=== PATIENT | female | born 1990 | race Caucasian/White ===

== ENCOUNTER 2017-05-06 01:35 | Inpatient (IN) ==
--- OUTSIDE RECORDS SUMMARY | 2017-05-06 02:00 | External Medical Summary | Continuity of Care Document ---
:1990 Author Organization [facility] Address [address] [place], [place] [id number] Phone Care Team Providers Name Role Phone Shayan Haynes MD Unavailable Unavailable Allergies, Adverse Reactions, Alerts Substance Reaction Severity Status No Known Drug Allergies Unknown Active Medications Medication Instructions Dosage Effective Dates Status Comments (start - stop) Augmentin 875 take 1 tablet by Not Available - Active mg-125 mg tablet oral route every 12 hours 28 mg take 1 tablet by Not Available - Active iron-800 mcg oral route every tablet day Problems Condition Effective Dates (start - stop) Clinical Status Supervision of other high risk - pregnancies, third trimester Diseases of the circ sys comp - , third trimester 34 weeks gestation of - state, incidental Supervision of other high risk - pregnancies, first trimester Encntr screen for infections w sexl - mode of transmiss Encounter for screening for oth - infec/parastc diseases Encounter for screening of - mother 10 weeks gestation of - Supervision of other high risk - pregnancies, first trimester Diseases of the circ sys comp - , second trimester 13 weeks gestation of - Supervision of other high risk - pregnancies, second trimester 18 weeks gestation of - Supervision of other high risk - pregnancies, second trimester 20 weeks gestation of - Supervision of other high risk - pregnancies, second trimester 16 weeks gestation of - Supervision of other high risk - pregnancies, second trimester 25 weeks gestation of - Supervision of other high risk - pregnancies, third trimester 35 weeks gestation of - Supervision of other high risk - pregnancies, third trimester Encounter for screening of - mother 36 weeks gestation of - Supervision of other high risk - pregnancies, third trimester 32 weeks gestation of - Supervision of other high risk - pregnancies, third trimester 29 weeks gestation of - Supervision of other high risk - pregnancies, third trimester 31 weeks gestation of - Diseases of the circ sys comp - , third trimester 34 weeks gestation of - Congestive Heart Failure Active Procedures Procedure Date OB Visit 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 700 Provider: Health PA, pregnancies, 7 Medical Cirilo [address] third Center Shai R, 1522, trimesterEncounte Anjel Nath r for 120, [facility], screening of [address] [id number], [id number] weeks [place], [facility] 120, [place] gestation of [id number] Jace, tel: , [place]. [place], tel: [phone]. [id number] tel:[phone] Lexus Mccormick Sep-2 Shai In Womens 7-201 Cirilo. 700 Health PA, 7 Medical PO Box Center 1522, Anjel Nath, 120, [place], Jace, [id number], [place], [place] [id number] tel: , [place]. tel: [phone] Lexus Mccormick Supervision of Sep-2 Shai Referring In Womens other high risk 2-201 Cirilo. 700 Provider: Health PA, pregnancies, 7 Medical Cirilo PO Box third [email or web address] Center Shai R, 1522, weeks gestation Anjel Nath, of 120, Medical [facility] [id number], [place], [place]jel 120, [place] [id number] Jace, tel: , [place], tel: [phone]. [phone] tel:[phone] Lexus Mccormick Supervision of Sep-1 Shai Referring In Womens other high risk 1-201 Cirilo. 700 Provider: Health PA, pregnancies, 7 Medical Cirilo PO Box third Center Shai R, 1522, trimesterDiseases Anjel Nath, of the circ sys 120, Medical [place], comp [facility], [place], [place] [id number], third [email or web address] ALLYSSA, [facility] 120, [place] weeks gestation [id number] Jace, tel: of , [place]. [place], tel: [phone]. [phone] tel:[phone] Lexus Mccormick Diseases of the Sep-1 Shai Referring In Womens Ultrasound circ sys comp 1-201 Cirilo. 700 Provider: Health PA, , third 7 Medical Cirilo PO Box [email or web address] weeks Center Shai R, 1522, gestation of Anjel Nath, 120, Medical [facility] [id number], [place], [place]jel 120, [place] [id number] Jace, tel: , [place], tel: [phone]. [id number] tel:[phone] Lexus Mccormick Supervision of Sep-0 Shai Referring In Womens other high risk 1-201 Cirilo. 700 Provider: Health PA, pregnancies, 7 Medical Cirilo PO Box third [email or web address] Center Shai R, 1522, weeks gestation Anjel Nath, of 120, Medical [facility] [id number], [place], [place]jel 120, [place] [id number] Jace, tel: , [place]. [place] tel: [phone]. [phone] tel:[phone] Lexus Mccormick Supervision of Aug-2 Shai Referring In Womens other high risk 4-201 Cirilo. 700 Provider: Health PA, pregnancies, 7 Medical Cirilo PO Box third Center Shai R, 1522, weeks gestation Anjel Nath, of 120, Medical [facility] [id number], [place], Anjel 120, [place] [id number] Jace, tel: , [place]. [place], tel: [phone]. [phone] tel:[phone] Lexus Mccormick Supervision of Feb- Shai Referring In Womens other high risk 0-201 Cirilo. 700 Provider: Health PA, pregnancies, 7 Medical Cirilo PO Box third [email or web address] Center Shai R, 1522, weeks gestation Anjel Nath, of 120, Medical [place], [facility] [id number], [place], Anjel 120, [place] [id number] Jace, tel: , [place], tel: [phone]. [phone] tel:[phone] Lexus Mccormick Supervision of Jan-1 Shai Referring In Womens other high risk 3-201 Cirilo. 700 Provider: Health PA, pregnancies, 7 Medical Cirilo PO Box second Center Shai R, 1522, [email or web address] weeks Anjel Nath, gestation of 120, Medical [place], [facility] [id number], [place], Anjel 120, [place] [id number] Jace, tel: , [place], tel: [phone]. [phone] tel:[phone] Lexus Mccormick Supervision of Antione-0 Shai Referring In Womens other high risk 8-201 Cirilo. 700 Provider: Health PA, pregnancies, 7 Medical Cirilo PO Box second Center Shai R, 1522, [email or web address] weeks Anjel Nath, gestation of 120, Medical [place], Jace, [place] [id number], [place], Anjel 120, [place] [id number] Jace, tel: , [place]. [place], tel: [phone]. [phone] tel:[phone] Lexus Mccormick Supervision of May-2 Shai Referring In Womens other high risk 6-201 Cirilo. 700 Provider: Health PA, pregnancies, 7 Medical Cirilo PO Box second Center Shai R, 1522, [id number] weeks Anjel Nath, gestation of 120, Medical [place], [facility] [id number], [place], Anjel 120, [place] [id number] Jace, tel: , [place]. [place], tel:[phone]. [phone] tel:[phone] Lexus Mccormick Supervision of November- Shai Referring In Womens other high risk 0-201 Cirilo. 700 Provider: Health PA, pregnancies, 7 [facility] second Center Shai R, 1522, [email or web address] weeks , [facility] Fabiana Leavitt, gestation of 120, Medical [place], [facility] [id number], [place], Anjel 120, [place] [id number] Jace, tel: , [place]. [place], tel:[phone]. [phone] tel:[phone] Lexus Mccormick Supervision of Oct-2 Shai Referring In Womens other high risk 0-201 Cirilo. 700 Provider: Health [place], pregnancies, 7 Medical [facility] first [place] Shai R, 1522, trimesterDiseases , [place] [address] Dag[place], of [facility] sys 120, Medical [place], comp , [facility] [id number], second [place], Anjel 120, [place] weeks [id number] Jace, tel: gestation of , [place]. [place] tel: [phone]. [phone] tel:[phone] Lexus Mccormick Supervision of Sep-3 Shai Referring In Womens other high risk 0-201 Cirilo. 700 Provider: Health PA, pregnancies, 7 Medical [facility] first Walker Shai R, 1522, trimesterEncntr , [place] [address] Dagmar, screen for 120, Medical [place], infections w sexl [facility] [id number], mode of [place], Anjel 120, [place] transmissEncounte [id number] Jace, tel: r for screening , [place]. [place], for oth tel:[phone]. infec/parastc [id number] tel: diseasesEncounter [phone] for screening of [id number] weeks gestation of Lexus Mccormick state, Mar- Martinez In Womens incidental 6-201 Geetha. Health PA, 7 700 [place] [id number] Dr [place], [place]jel [place], 120, [id number], [place], [place], tel:[phone] 872130 , [place]. tel: [phone] Family History Family Member Diagnosis Age At Onset Immunizations Vaccine Date Status Comments Tdap completed Source: New Immunization Record Payers Payer name Insurance type Covered libertarian ID Authorization(s) [facility] [id number] [facility] [id number] Social History Type Description Quantity Date Captured Alcohol Use Details No Caffeine Use Details Unknown Tobacco Use Status Unknown Smoking Status Never smoker Vital Signs Date / Height Weight BMI Pulse Blood Temperature Respiratory Body Head BMI Time: Rate Pressure Rate Surface Circumference percentile Area 158.20 26.3 126/83 2017 lbs 2 mm[Hg] 9:49 kg/m AM eter (2) 7 9:43 kg/m AM eter (2) Chief Complaint And Reason For Visit Unknown Chief Complaint And Reason For Visit Reason For Referral Reason For Referral Unknown Plan Of Care Date Type Action Status Goal Lifestyle education regarding completed diet Appointment Tamela Aparicio BOOKED Future Order: Radiology Order Ultrasound OB Follow-up ([id number]) Ordered Date Type Problem Goal Intervention Status Start Date Unknown. History Of Present Illness Encounter Date Complaint History Of Present Illness This patient has no known history of present illness Functional Status Encounter Date Functional Assessment Cognitive Assessment Unknown Medications Administered Medication Instructions Dosage Effective Dates (start - stop) Status Comments Drug Treatment Unknown Instructions Date Instruction Additional Information exercise indications for ultrasound influenza vaccine environmental / work hazards HIV and other routine tests risk factors identified by history anticipated course of care nutrition and weight gain counseling, special diet toxoplasmosis precautions (cats / raw meat) sexual activity travel use of any medications (including supplements, vitamins, herbs, OTC drugs) domestic violence seat belt use childbirth classes / hospital facilities hospital registration genetic testing new ob handbook Giving encouragement to exercise Related to Body mass index less than 20 Lifestyle education regarding diet Related to Body mass index less than 20
--- OUTSIDE RECORDS SUMMARY | 2017-05-06 02:00 | External Medical Summary | Referral Summary ---
:1990 [facility] Address [address] [place] [address] [place]SS[place] [address] Care Team Providers Name Role Phone Shayan Haynes Primary Care Physician Encounter [facility] [id number] Date(s): 09/19/16 - 09/19/16 [facility] [place] [address]- [place] Discharge Diagnosis: Amenorrhea, secondary Discharge Disposition: 01-Home or Self Care Attending Physician: Ofelia Swift APRN Admitting Physician: Ofelia Swift APRN Vital Signs Most recent to oldest [Reference Range]: 1 Temperature Tympanic [36.6-38.1 degC] 36.8 degC (09/19/16 2:16 PM) Peripheral Pulse Rate [60-100 bpm] 72 bpm (09/19/16 2:16 PM) Blood Pressure [90-140/60-90 mmHg] 127/54 mmHg (09/19/16 2:16 PM) Problem List No data available for this section Allergies, Adverse Reactions, Alerts No Known Medication Allergies Medications Aspirin Low Dose 81 mg oral delayed release tablet tabs, Oral, Daily, 0 Refill(s) Start Date: 05/05/14 Status: Orderedcitalopram 10 mg oral tablet 10 mg 1 tabs, Oral, Daily, # 30 tabs, 0 Refill(s) Start Date: 04/03/15 Status: OrderedOcella 3 mg-0.03 mg oral tablet See Instructions, 1 tabs Oral Daily, # 84 tabs, 3 Refill(s), eRx: [facility], 1 tabs Oral Daily Start Date: 04/24/15 Status: OrderedPrenatal Multivitamins Oral, Daily, 0 Refill(s) Start Date: 04/03/15 Status: Ordered Results Chemistry Most recent to oldest [Reference Range]: 1 Beta hCG Ql Positive *ABN* (09/19/16 2:49 PM) Immunizations Given and Recorded Vaccine Date Status Refusal Reason influenza virus vaccine, live 06/17/13 Given Procedures Procedure Date Related Diagnosis Body Site Collection of venous blood by venipuncture 09/19/16 Social History Social History Type Response Smoking Status Never smoker Assessment and Plan Extracted from: Title: Office Visit Note Author: Ofelia Swift APRN Date: 09/19/16 Assessment/Plan Amenorrhea, secondary Will obtainserum qualitative hCGand report findings. Patient has prescription for vitamins. If test is positive will obtain sonogram in 10-14 days. Because o f hercardiac situation (pulmonary valve replacement)will need referral to high risk OBand referral will be made to Dr. Negin Monique. Ordered: Office Visit Level 3 Est 58888 Addendum by Americo Keenan DO on September 19, 2016 19:58:12 SYSTEMS INTEGRATION ANALYST I reviewed this chart, the patient's medical history, and the Resident's/INSURANCE INSTRUCTOR 's/PA/RN's/PharmD's documented findings, and concur with the assessment and plan as above.
--- OUTSIDE RECORDS SUMMARY | 2017-05-06 02:00 | External Medical Summary | Continuity of Care Document ---
:1990 Author Organization [facility] Address [address] [place], [place] [address] Phone Care Team Providers Name Role Phone Shayan Haynes MD Unavailable Unavailable Allergies, Adverse Reactions, Alerts Substance Reaction Severity Status No Known Drug Allergies Unknown Active Medications Medication Instructions Dosage Effective Dates Status Comments (start - stop) 28 mg take 1 tablet by Not Available - Active iron-800 mcg oral route every tablet day Problems Condition Effective Dates (start - stop) Clinical Status Supervision of other high risk - pregnancies, second trimester 25 weeks gestation of - state, incidental Supervision [...] second trimester 16 weeks gestation of - Congestive Heart Failure Active Procedures Procedure Date OB Visit No Charge Results Test Name Date and Time Measure Units Reference Range Abnormal Flag Comments Unknown Advance Directives Directive Yes / No Effective Date File Name Unknown Encounters Encounter Practice Location Reason(s) Diagnoses Date Provider Care Team Description For Visit Members Lexus Mccormick Supervision of Irwin-1 Shai Referring In Womens other high risk 3-201 Cirilo. 700 Provider: Health PA, pregnancies, second 7 Medical Cirilo [address] [email or web address] weeks Center Shai R, 1522, gestation of Anjel Nath, 120, Medical [facility] [id number], [place], [place] 120, [place] [id number] Jace, tel:+ , [place], tel: [phone]. [phone] tel:[phone] Lexus Mccormick Supervision of Antione-0 Shai Referring In Womens other high risk 8-201 Cirilo. 700 Provider: Health PA, pregnancies, second 7 Medical Cirilo PO Box [email or web address] weeks Center Shai R, 1522, gestation of Anjel Nath, 120, Medical [facility] [id number], [place], [place] 120, [place] [id number] Jace, tel: , [place]. [place], tel: [phone]. [phone] tel:[phone] Lexus Mccormick Supervision of November-2 Shai Referring In Womens other high risk 6-201 Cirilo. 700 Provider: Health PA, pregnancies, second 7 Medical Cirilo PO Box [email or web address] weeks Center Shai Srivastava, 1522, gestation of Anjel Nath, 120, Medical [facility]ace [facility] [id number], [place], [place]jel 120, [place] [id number] Jace, tel: , [place], tel: [phone]. [id number] tel:[phone] Lexus Mccormick Supervision of November-1 Shai Referring In Womens other high risk 0-201 Cirilo. 700 Provider: Health PA, pregnancies, second 7 Medical Cirilo PO Box [email or web address] weeks Center Shai R, 1522, gestation of Anjel Nath, 120, Medical [facility] [id number], [place], Anjel 120, [place] [id number] Jace, tel: , . [place] tel: [phone]. [phone] tel:[phone] Lexus Mccormick Supervision of Apr-2 Shai Referring In Womens other high risk 0-201 [place]. 700 Provider: Health PA, pregnancies, first 7 Medical [place] PO Box trimesterDiseases Center Shai R, 1522, of the [facility] sys Anjel Nath 700 [place], comp , 120, Medical [place], second [email or web address] [facility] [id number], weeks gestation of [place], Anjel 120, [place] [id number] Mccormick, tel:+ , [place]. [place], tel:[phone]. [phone] tel:[phone] Associates Jace Supervision of Sep-3 Shai Referring In Womens other high risk 0-201 Cirilo. 700 Provider: Health PA, pregnancies, first 7 Medical [facility] Box trimesterEncntr [place] Shai Srivastava, 152, screen for Dr Anjel 700 Dag[place], infections w sexl 120, Medical [place], mode of Jace [place] [id number], transmissEncounter [place], [facility] 120, [place] for screening for [id number] Mccormick, tel: ot infec/parastc , [place]. [place], [facility] tel:[phone]. for [phone] tel: screening of [id number] seuced29 weeks gestation of Associates Jace state, Sep- Martinez In Womens incidental 6-201 Geetha. Health PA, 7 700 PO Box [facility] 15[address], Center Dr Dagmar, Anjel [place], 120, , [place], [place], tel:[phone] , . tel: [phone] Family History Family Member Diagnosis Age At Onset Immunizations Vaccine Date Status Comments Unknown Payers Payer name Insurance type Covered libertarian ID Authorization(s) [facility] [id number] Social History Type Description Quantity Date Captured Alcohol Use Details No Caffeine Use Details Unknown Tobacco Use Status Unknown Smoking Status Never smoker Vital Signs Date / Height Weight BMI Pulse Blood Temperature Respiratory Body Head BMI Time: Rate Pressure Rate Surface Circumference percentile Area 146.10 24.3 / lbs 1 mm[Hg] 8:42 kg/m AM eter (2) Chief Complaint And Reason For Visit Unknown Chief Complaint And Reason For Visit Reason For Referral Reason For Referral Unknown Plan Of Care Date Type Action Status Goal Lifestyle education regarding diet completed Appointment Tamela Aparicio BOOKED Date Type Problem Goal Intervention Status Start [...]
--- OUTSIDE RECORDS SUMMARY | 2017-05-06 02:00 | External Medical Summary | Referral Summary ---
:1990 Author Organization [facility] Address [address] [place] [address] [place]SS[place] De La Rosa [address] Care Team Providers Name Role Phone Shayan Haynes Primary Care Physician Encounter [facility] Date(s): 05/01/15 - 05/01/15 [facility] [address] [place] [address] [place] [address]- Discharge Diagnosis: Axillary lump Discharge Disposition: 01-Home or Self Care Attending Physician: Andrea Hussein MD Admitting Physician: Andrea Hussein MD Referring Physician: Ofelia Swift APRN Vital Signs Most recent to oldest [Reference Range]: 1 Temperature Tympanic [36.6-38.1 degC] 36.9 degC (05/01/15 9:05 AM) Blood Pressure [90-140/60-90 mmHg] 108/62 mmHg (05/01/15 9:05 AM) Problem List No data available for this [...] Daily, # 84 tabs, 3 Refill(s), eRx: [facility], 1 tabs Oral Daily Start Date: 04/24/15 Status: OrderedPrenatal Multivitamins Oral, Daily, 0 Refill(s) Start Date: 04/03/15 Status: Ordered Results No data available for this section Immunizations Vaccine Date Refusal Reason influenza virus vaccine, live 06/17/13 Procedures No data available for this section Social History Social History Type Response Smoking Status Never smoker Assessment and Plan Extracted from: Title: Office Visit Note Author: Andrea Hussein MD Date: 05/01/15 Assessment/Plan 1.Axillary lump Ordered: Office Visit Level 4 New [id number] Plan: Ongoing Clinical Observation/Follow-Up. No Need for Surgical Intervention/Biopsy at This Time. I did review the patient's chartincluding office note performed by PCPs telesales professional fromApril 03, 2015. Reviewedultrasound of left breast from April 23, 2015 that did not reveal any s onographic evidence for malignancy. Patient also had underwent adiagnostic mammogramof her left breastthat was also found to be within normal limits with no mass or calcification noted. I inf ormed the patient and her mother whom accompanied her todaythat I felt that her radiographic findings were concordant with her physical findings. I.e. there were both benign in natureand Itheref israel did not feel that there was any need forsurgicalintervention/biopsy at this time. I recommended that she continue to do monthly self breast examinations and to monitor this slight area of firm nessnoted within the upper outer quadrant of her left breast. If she began to notice any changes she should return to the office for further evaluation at that time.
--- OUTSIDE RECORDS SUMMARY | 2017-05-06 02:00 | External Medical Summary | Continuity of Care Document ---
:1990 Author Organization [facility] Address [address] [place], [place] [id number] Phone Care Team Providers Name Role Phone [...] third trimester 29 weeks gestation of - state, incidental Supervision [...] third trimester 31 weeks gestation of - Congestive Heart Failure Active Procedures Procedure Date OB Visit No Charge Hemoglobin count, colorimetric Hematocrit blood count Glucose test Venpnctr fngr/heel/ear stick routne Results Test Name Date and Time Measure Units Reference Range Abnormal Flag Comments Panel Description: Glucose [Mass/volume] in Serum or Plasma --1 hour post 50 g glucose PO GLUCOSE, GESTATIONAL 80 mg/dL <140 N Test performed at [facility] SCREEN (50G)-140 10:16:00 DIAGNOSTICS [id number] [place] [address]Ihomxenc: ROGELIO LEO DO,MPH Panel Description: HEMOGLOBIN + HEMATOCRIT HEMOGLOBIN 10:16:00 12.6 g/dL 11.7-15.5 N HEMATOCRIT 10:16:00 36.5 % 35.0-45.0 N Test performed at [facility] [id number] [place] [address]Flqaxsiw: ROGELIO LEO DO,MPH Advance Directives Directive Yes / No Effective Date File Name Unknown Encounters Encounter Practice Location Reason(s) Diagnoses Date Provider Care Team Description For Visit Members Lexus Mccormick Supervision of Shai Referring In Womens other high risk 4-201 [place]. 700 Provider: Health NELLY, pregnancies, third 7 Medical [facility] Box [email or web address] weeks [place] Shai Srivastava, 1522, gestation of [place]jel Nath, 120, Medical [facility] [id number], [place], [facility] 120, [place] [id number] Jace, tel: , [facility], tel: [phone]. [id number] tel:[phone] Lexus Mccormick Supervision of Shai Referring In Womens other high risk 0-201 [place]. 700 Provider: Eleanor VILLEGAS, pregnancies, third 7 Medical [facility] Box [id number] weeks [place] Shai Srivastava, 1522, gestation of [place]jel Nathta, 120, Medical [facility] [id number], [place], [place] 120, [place] [id number] Jace, tel: , [facility] tel:[phone]. [id number] tel:[phone] Lexus Mccormick Supervision of Irwin-1 Shai Referring In Womens other high risk 3-201 Cir[place]. 700 Provider: Health PA, pregnancies, second 7 Medical Cirilo PO Box [email or web address] weeks Center Shai R, 1522, gestation of [place] Nath, 120, Medical [facility] [id number], [place], [place] 120, [place] [id number] Jace, tel: , [place]. [place] tel: [phone]. [id number] tel:[phone] Lexus Mccormick Supervision of Antione-0 Shai Referring In Womens other high risk 8-201 Cir[place]. 700 Provider: Health PA, pregnancies, second 7 Medical Cir[place] PO Box [email or web address] weeks Center Shai R, 1522, gestation of [place] Nath, 120, Medical [facility] [id number], [place], [place] 120, [place] [id number] Jace, tel: , [place]. [place] tel: [phone]. [id number] tel:[phone] Lexus Mccormick Supervision of May-2 Shai Referring In Womens other high risk 6-201 Cir[place]. 700 Provider: Health PA, pregnancies, second 7 Medical Cirilo [address] Box [email or web address] weeks Center Shai R, 1522, gestation of [place] Nath, 120, Medical [facility] [id number], [place], [place] 120, [place] [id number] Jace, tel: , [place]. [place] tel: [phone]. [id number] tel:[phone] Lexus Mccormick Supervision of May-1 Shai Referring In Womens other high risk 0-201 Cir[place]. 700 Provider: Health PA, pregnancies, second 7 Medical Cir[place] PO Box [email or web address] weeks Center Shai R, 1522, gestation of [place] Nath, 120, Medical [facility] [id number], [place], [place] 120, [place] [id number] Jace, tel: , . [place] tel: [phone]. [id number] tel:[phone] Lexus Mccormick Supervision of Apr-2 Shai Referring In Womens other high risk 0-201 [place]. 700 Provider: Health PA, pregnancies, first 7 Medical [facility] Box trimesterDiseases Center Shai R, 1522, of the [facility] sys [place] Nath 700 [place], comp , 120, Medical [place], second [facility] [id number], weeks gestation of [place], [facility] 120, [place] [id number] [place], tel: , [place]. [place], tel: [phone]. [id number] tel:[phone] Lexus Mccormick Supervision of Sep-3 Shai Referring In Womens other high risk 0-201 Cirilo. 700 Provider: Health PA, pregnancies, first 7 Medical [facility] Box trimesterEncntr [place] Shai R, 1522, screen for [place] Nathchita, infections w sexl 120, Medical [place], mode of [facility] [id number], transmissEncounter [place], [facility] 120, [place] for screening for [id number] M[place], tel: [facility] infec/parastc , [place]. [place], diseasesEncounter tel: [phone]. for [id number] tel: screening of [id number] ogavso43 weeks gestation of Associates Jace state, Sep- Martinez In Womens incidental 6-201 Geetha. Health PA, 7 700 PO Box [facility] [address], [place] [address] Dagmar [place], 120, [id number], [place], tel: [phone] , [place]. tel: [phone] Family History Family Member Diagnosis Age At Onset Immunizations Vaccine Date Status Comments Unknown Payers Payer name Insurance type Covered libertarian ID Authorization(s) [facility] ALLYSSA TIJERINA [id number] Social History Type Description Quantity Date Captured Alcohol Use Details No Caffeine Use Details Unknown Tobacco Use Status Unknown Smoking Status Never smoker Vital Signs Date / Height Weight BMI Pulse Blood Temperature Respiratory Body Head BMI Time: Rate Pressure Rate Surface Circumference percentile Area 152.80 25.4 132/76 -2017 lbs 2 mm[Hg] 9:27 kg/m AM eter (2) Chief Complaint And Reason For Visit Unknown Chief Complaint And Reason For Visit Reason For Referral Reason For Referral Unknown Plan Of Care Date Type Action Status Goal Lifestyle education regarding diet completed Appointment Tamela Aparicio BOOKED Appointment Tamela Aparicio BOOKED Date Type Problem [...]
--- OUTSIDE RECORDS SUMMARY | 2017-05-06 02:00 | External Medical Summary ---
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 Problem PFO (patent foramen ovale) Q21.1 Active Problem Syncope R55 Active Problem Congenital heart disease Q24.9 Active Problem PFO 745.5 Active Problem Congenital Heart Disease 746.9 Active Problem Pulmonary valve disorders I37.9 Active Problem Tricuspid valve disorders, I36.9 Active non-rheumatic Assessment Syncope R55 Active Assessment PFO (patent foramen ovale) Q21.1 Active Assessment Pulmonary valve disorders I37.9 Active Assessment Congenital heart disease Q24.9 Active Assessment Tricuspid valve disorders, I36.9 Active non-rheumatic Problem Syncope 780.2 Active Medications Medication Code System Code Instructions Start End Date Status Dosage Date Aspirin [facility] 58373-55 81 MG Orally 1 tablet 74-68 Once a day [facility] 37735-87 Orally qd 1 tab 06-10 Ocella [facility] 66072-33 3-0.03 MG Orally 1 tablet 31-67 Once a day Citalopram [facility] 25220-00 20 MG Orally 1 tablet Hydrobromide 41-01 Once a day Procedures Procedure Coding System Code Date Office Visit, Est Pt., Level 4 CPT-4 74970 Mar 04, 2016 ELECTROCARDIOGRAM, COMPLETE CPT-4 24774 Mar 04, 2016 Vital Signs Date/Time: Mar 04, 2016 BMI 21.11 Index Weight 123 lbs Height 64 in Cardiac Monitoring Heart Rate 62 /min Oximetry 99 % Blood Pressure Diastolic 80 mm Hg Blood Pressure Systolic 102 mm Hg Results No Known Results Summary Purpose [employer]Works Submission
--- OUTSIDE RECORDS SUMMARY | 2017-05-06 02:00 | External Medical Summary | Continuity of Care Document ---
:1989 Author Organization [facility] Address [address] [place], [place] [phone] Phone Care Team Providers Name Role Phone [...] Effective Dates (start - stop) Clinical Status state, incidental Supervision of other high risk [...] third trimester 34 weeks gestation of - Supervision of other [...] Congestive Heart Failure Active Procedures Procedure Date Unknown Results Test Name Date and Time Measure [...] 1522, trimesterEncounte [place] Nath r for 120, Medical [place], screening of [facility] [id number], [email or web address] weeks [place], [facility] 120, [place] gestation of [id number] Jace, tel: , [place]. [place], tel: [phone]. [id number] tel:[phone] Lexus Mccormick Sep-2 Shai In Womens 7-201 Cirilo. 700 Health PA, 7 Medical [address] Center [address]22, [place] Nath, 120, [place], Jace, [id number], [place], [place] [id number] tel: , [place]. tel: [phone] Lexus Mccormick Supervision of Sep-2 Shai Referring In Womens other high risk 2-201 Cirilo. 700 Provider: Health PA, pregnancies, 7 Medical Cir[place] PO Box third [email or web address] Center Shai R, 1522, weeks gestation [place] Nath, of 120, Medical [facility] [id number], [place], [place] 120, [place] [id number] Jace, tel: , [place]. [place], tel: [phone]. [id number] tel:[phone] Lexus Mccormick Sep-1 Shai In Womens 3-201 Cirilo. 700 Health PA, 7 Medical PO Box Center 1522, [place] Nath, 120, [place], [place], [id number], [place], [place] [id number] tel:+ , [place]. tel: [phone] Lexus Mccormick Supervision of Sep-1 Shai Referring In Womens other high risk 1-201 [place]. 700 Provider: Health PA, pregnancies, 7 Medical [facility] Box third Center Shai R, 1522, trimesterDiseases [place] Nath, of the circ sys 120, Medical [place], comp [facility] [id number], third [email or web address] [place], [place] 120, [place] weeks gestation [id number] Jace, tel: of , [place]. [place] tel: [phone]. [phone] tel:[phone] Lexus Mccormick Diseases of the Sep-1 Shai Referring In Womens Ultrasound circ sys comp 1-201 [place]. 700 Provider: Health PA, , third 7 Medical [facility] Box [email or web address] weeks Center Shai R, 1522, gestation of [place] Nath, 120, Medical [facility] , [place], [place] 120, [place] [id number] Jace, tel: , [place]. [place], tel: [phone]. [id number] tel:[phone] Lexus Mccormick Supervision of Sep-0 Shai Referring In Womens other high risk 1-201 [place]. 700 Provider: Health PA, pregnancies, 7 Medical Cir[place] PO Box third [email or web address] Center Shai R, 1522, weeks gestation [place] Nath, of 120, Medical [facility] [id number], [place], [place] 120, [place] [id number] Jace, tel: , [place] tel:[phone]. [id number] tel:[phone] Lexus Mccormick Supervision of Aug-2 Shai Referring In Womens other high risk 4-201 Cirilo. 700 Provider: Health PA, pregnancies, 7 Medical Cir[place] PO Box third [id number] Center Shai R, 1522, weeks gestation [place] Nath, of 120, Medical [facility]ace [facility] [id number], [place], [place] 120, [place] [id number] Jace, tel: , [place]. [place], tel: [phone]. [id number] tel:[phone] Lexus Mccormick Supervision of Aug-1 Shai Referring In Womens other high risk 0-201 Cirilo. 700 Provider: Health PA, pregnancies, 7 Medical Cir[place] PO Box third [email or web address] Center Shai R, 1522, weeks gestation [place] Nath, of 120, Medical [facility] [id number], [place], [place] 120, [place] [id number] Jace, tel: , [place]. [place], tel: [phone]. [id number] tel:[phone] Lexus Mccormick Supervision of Irwin-1 Shai Referring In Womens other high risk 3-201 Cirilo. 700 Provider: Health PA, pregnancies, 7 Medical Cir[place] PO Box second Center Shai R, 1522, [email or web address] weeks [place] Nath, gestation of 120, Medical [place], [facility] [id number], [place], [place] 120, [place] [id number] Jace, tel: , [place], tel: [phone]. [id number] tel:[phone] Lexus Mccormick Supervision of Antione-0 Shai Referring In Womens other high risk 8-201 Cirilo. 700 Provider: Health PA, pregnancies, 7 Medical Cirilo PO Box second Center Shai R, 1522, [id number] weeks [place] Nath, gestation of 120, Medical [place], [place], [place] [id number], [place], [place] 120, [place] [id number] Jace, tel: , [place]. [place] tel: [phone]. [id number] tel:[phone] Lexus Mccormick Supervision of November- Shai Referring In Womens other high risk 6-201 Cirilo. 700 Provider: Health PA, pregnancies, 7 Medical Cir[place] PO Box second Center Shai R, 1522, [email or web address] weeks [place] Nath, gestation of 120, Medical [place], [facility] [id number], [place], [place] 120, [place] [id number] Jace, tel: , [place]. [place] tel:[phone]. [id number] tel:[phone] Lexus Mccormick Supervision of Shai Referring In Womens other high risk 0-201 Cirilo. 700 Provider: Health PA, pregnancies, 7 Medical Cir[place] PO Box second Center Shai R, 1522, [email or web address] weeks [place] Nath, gestation of 120, Medical [place], [facility] [id number], [place], [place] 120, [place] [id number] Jace, tel: , [place] tel: [phone]. [id number] tel:[phone] Lexus Mccormick Supervision of Oct-2 Shai Referring In Womens other high risk 0-201 Cirilo. 700 Provider: Health PA, pregnancies, 7 Medical [place] PO Box first Center Shai R, 1522, trimesterDiseases [place] Nath, of the [facility] sys 120, Medical [place], comp , [place], [place] [id number], second [place], [place] 120, [place] [email or web address] weeks [id number] Jace, tel: gestation of , [place]. [place] tel: [phone]. [id number] tel:[phone] Lexus Mccormick Supervision of Sep-3 Shai Referring In Womens other high risk 0-201 Cirilo. 700 Provider: Health PA, pregnancies, 7 Medical [place] PO Box first Center Shai R, 1522, trimesterEncntr [place] Nath, screen for 120, Medical [place], infections [facility]l [facility] [id number], mode of [place], [place] 120, [place] transmissEncounte [id number] Jace, tel: r for screening , [place]. [place] for oth tel: [phone]. infec/parastc [id number] tel: diseasesEncounter [phone] for screening of [email or web address] weeks gestation of Associates Mccormick state, [place] In Womens incidental 6-201 Geetha. [facility], 7 700 PO [facility] [address], [address] [address] Dagmar, [place], 120, [id number], [place], [place], tel: [phone] , [place]. tel: [phone] Family History Family Member Diagnosis Age At Onset Immunizations Vaccine Date Status Comments Tdap completed Source: New Immunization Record Payers Payer name Insurance type Covered alliance party ID Authorization(s) [facility] [id number] [facility] [id number] Social History Type Description Quantity Date Captured Unknown Vital Signs Date / Height Weight BMI Pulse Blood Temperature Respiratory Body Head BMI Time: Rate Pressure Rate Surface Circumference percentile Area Unknown Chief Complaint And Reason For Visit Unknown Chief Complaint And Reason For Visit Reason For Referral Reason For Referral Unknown Plan Of Care Date Type Action Status Goal Lifestyle education regarding completed diet Appointment Tamela Aparicio BOOKED Future Order: Radiology Order Ultrasound OB Follow-up ([id number]) Ordered Date Type Problem Goal Intervention Status [...]
--- OUTSIDE RECORDS SUMMARY | 2017-05-06 02:00 | External Medical Summary | Continuity of Care Document ---
:1989 Author Organization [facility] Address [address] [place], [place] [phone] Phone Care Team Providers Name Role Phone [...] third trimester 35 weeks gestation of - state, incidental Supervision [...] other high risk - pregnancies, third trimester 37 weeks gestation of - Supervision of other [...] Congestive Heart Failure Active Procedures Procedure Date Immuniz admnin, 1 vac, sngl/combo 19 Yrs + TDAP VACCINE >7 IM OB Visit No Charge Results Test Name Date and Time Measure Units Reference Range Abnormal Flag Comments Unknown Advance Directives Directive Yes / No Effective Date File Name Unknown Encounters Encounter Practice Location Reason(s) Diagnoses Date Provider Care Team Description For Visit Members Lexus Mccormick Supervision of Apr- Shai Referring In Womens other high risk 5-201 Cirilo. 700 Provider: Health [place], pregnancies, 7 Medical Cir[place] PO Box third [email or web address] Center Shai R, 1522, weeks gestation [place] Nath, of 120, Medical [place], [address] [place] [address] [id number], [place], [place] 120, [place] [id number] Jace, tel: , [place]. ALL[place], [address] tel: [phone]. [id number] tel:[phone] Lexus Mccormick Supervision of Mar- Shai Referring In Womens other high risk 7-201 Cirilo. 700 Provider: Health PA, pregnancies, 7 Medical Cirilo PO Box third Center Shai R, 1522, trimesterEncounte [place] Nath 700 Dag[place] r for 120, Medical [place], screening of Valery Mccorm[place] Dr [id number], [id number] weeks [place], [place] 120, [place] gestation of [id number] Jace, tel: , [place]. [place], tel: [phone]. [id number] tel:[phone] Lexus Mccormick Supervision of Sep-2 Shai Referring In Womens other high risk 2-201 [place]. 700 Provider: Health PA, pregnancies, 7 Medical Cirilo PO Box third Center Shai R, 1522, weeks gestation [place] Nath, of 120, Medical [facility] [id number], [place], [place] 120, [place] [id number] Jace, tel: , [place]. [place], tel: [phone]. [id number] tel:[phone] Lexus Mccormick Supervision of Sep-1 Shai Referring In Womens other high risk 1-201 [place]. 700 Provider: Health PA, pregnancies, 7 Medical Cirilo PO Box third Center Shai R, 1522, trimesterDiseases [place] Nath, of the circ sys 120, Medical [place], comp , [facility] [id number], third [email or web address] [place], [place] 120, [place] weeks gestation [id number] Jace, tel: of , [place]. [place], tel: [phone]. [id number] tel:[phone] Lexus Mccormick Diseases of the Sep-1 Shai Referring In Womens Ultrasound circ sys comp 1-201 [place]. 700 Provider: Health NELLY, , third 7 Medical Cirilo PO Box [email or web address] weeks Center Shai R, 1522, gestation of [place] Nath, 120, Medical Jace [facility] [id number], [place], [place] 120, [place] [id number] Jace, tel: , [place]. [place], tel: [phone]. [id number] tel:[phone] Lexus Mccormick Supervision of Sep-0 Shai Referring In Womens other high risk 1-201 [place]. 700 Provider: Health PA, pregnancies, 7 Medical Cirilo PO Box third [email or web address] Center Shai R, 1522, weeks gestation [place] Nath, of 120, Medical Jace [facility] [id number], [place], [place] 120, [place] [id number] Jace, tel: , [place]. [place] tel: [phone]. [id number] tel:[phone] Lexus Mccormick Supervision of Aug-2 Shai Referring In Womens other high risk 4-201 Cirilo. 700 Provider: Health PA, pregnancies, 7 Medical Cirilo PO Box third [email or web address] Center Shai R, 1522, weeks gestation [place] Nath, of 120, Medical [place], [facility] [id number], [place], [place] 120, [place] [id number] Jace, tel: , [place]. [place], tel: [phone]. [id number] tel:[phone] Lexus Mccormick Supervision of Aug-1 Shai Referring In Womens other high risk 0-201 Cirilo. 700 Provider: Health PA, pregnancies, 7 Medical Cirilo PO Box third [email or web address] Center Shai R, 1522, weeks gestation [place] Nath, of 120, Medical ALLYSSA, [facility] [id number], [place], [place] 120, [place] [id number] Jace, tel: , [place]. [place] tel: [phone]. [id number] tel:[phone] Lexus Mccormick Supervision of Irwin-1 Shai Referring In Womens other high risk 3-201 Cirilo. 700 Provider: Health PA, pregnancies, 7 Medical Cirilo PO Box second Center Shai R, 1522, [id number] weeks [place] Nath, gestation of 120, Medical [place], [facility] [id number], [place], [place] 120, [place] [id number] Jace, tel: , [place]. [place] tel: [phone]. [id number] tel:[phone] Lexus Mccormick Supervision of Antione-0 Shai Referring In Womens other high risk 8-201 Cirilo. 700 Provider: Health PA, pregnancies, 7 Medical Cirilo PO Box second Center Shai R, 1522, [email or web address] weeks [place] Nath, gestation of 120, Medical [place], Jace, Valery Nath [id number], [place], [place] 120, [place] [id number] Jace, tel: , . [place] tel: [phone]. [id number] tel:[phone] Lexus Mccormick Supervision of November-2 Shai Referring In Womens other high risk 6-201 Cirilo. 700 Provider: Health PA, pregnancies, 7 Medical Cirilo PO Box second Center Shai R, 1522, [email or web address] weeks [place] Nathta, gestation of 120, Medical [place], [facility] [id number], [place], [place] 120, [place] [id number] Jace, tel: , [place]. [place] tel: [phone]. [id number] tel:[phone] Lexus Mccormick Supervision of November-1 Shai Referring In Womens other high risk 0-201 Cirilo. 700 Provider: Health PA, pregnancies, 7 Medical Cirilo PO Box second Center Shai R, 1522, [email or web address] weeks [place] Nathta, gestation of 120, Medical [place], [facility] [id number], [place], [place] 120, [place] [id number] Jace, tel: , [place]. [place] tel: [phone]. [id number] tel:[phone] Lexus Mccormick Supervision of Apr-2 Shai Referring In Womens other high risk 0-201 Cirilo. 700 Provider: Health PA, pregnancies, 7 Medical Cirilo PO Box first Center Shai R, 1522, trimesterDiseases [place] Nath, of [facility] sys 120, Medical [place], comp , [facility] [id number], second [place], [place] 120, [place] [id number] weeks [id number] Jace, tel: gestation of , [place]. [place] tel: [phone]. [id number] tel:[phone] Lexus Mccormick Supervision of Mar-3 Shai Referring In Womens other high risk 0-201 Cirilo. 700 Provider: Health PA, pregnancies, 7 Medical Cirilo PO Box first Center Shai R, 1522, trimesterEncntr [place] Nath 700 [place], screen for 120, Medical [place], infections w sexl [facility] [id number], mode of [place], [place] 120, [place] transmissEncounte [id number] Jace, tel: r for screening , [place], [address] for oth tel: [phone]. infec/parastc [id number] tel: diseasesEncounter [phone] for screening of [id number] weeks gestation of Associates [place]orm[place] state, [place] In Womens incidental 6-201 Geehta. [facility], 7 700 PO Box Medical [address], [place] [address] Dag[place], [facility], 120, [id number], [facility], tel: [phone] , . tel: [phone] Family History Family Member Diagnosis Age At Onset Immunizations Vaccine Date Status Comments Influenza, seasonal, injectable, completed Source: Other Provider preservative free, 3 yrs or older Tdap completed Source: New Immunization Record Payers Payer name Insurance type Covered democrat ID Authorization(s) [facility] [id number] [facility] [id number] Social History Type Description Quantity Date Captured Alcohol Use Details No Caffeine Use Details Unknown Tobacco Use Status Unknown Smoking Status Never smoker Vital Signs Date / Height Weight BMI Pulse Blood Temperature Respiratory Body Head BMI Time: Rate Pressure Rate Surface Circumference percentile Area 161.00 26.7 /2017 lbs 9 mm[Hg] 2:02 kg/m PM eter (2) Chief Complaint And Reason For Visit Unknown Chief Complaint And Reason For Visit Reason For Referral Reason For Referral Unknown Plan Of Care Date Type Action Status Goal Lifestyle education regarding completed diet Future Order: Radiology Order Ultrasound OB Follow-up ([id number]) Ordered Date Type Problem Goal Intervention Status [...]
--- OUTSIDE RECORDS SUMMARY | 2017-05-06 02:00 | External Medical Summary | Continuity of Care Document ---
:1989 Author Organization [facility] Address [address] [place], [place] [phone] Phone Care Team Providers Name Role Phone [...] third trimester 32 weeks gestation of - state, incidental Supervision [...] third trimester 34 weeks gestation of - Diseases of the circ sys comp - , third trimester Supervision of other high risk - pregnancies, third trimester 34 weeks gestation of - Congestive Heart Failure Active Procedures Procedure Date OB Visit No Charge Results Test Name Date and Time Measure Units Reference Range Abnormal Flag Comments Unknown Advance Directives Directive Yes / No Effective Date File Name Unknown Encounters Encounter Practice Location Reason(s) Diagnoses Date Provider Care Team Description For Visit Members Lexus Mccormick Diseases of the Sep-1 Shai Referring In Womens circ sys comp Cirilo. 700 Provider: Health NELLY, , third 7 Medical Cirilo [address] trimesterSupervis Center Shai R, 1522, ion of other high Anjel Nath, risk pregnancies, 120, Medical [place], third Valery [address] [id number], weeks gestation [place], [facility] 120, [place] of [id number] Jace, tel:+2 , [place]. [place], tel: [phone]. [id number] tel:[phone] Lexus Mccormick Diseases of the Sep-1 Shai Referring In Womens Ultrasound circ sys comp Cirilo. 700 Provider: Eleanor VILLEGAS, , third 7 Medical Cirilo [address] [email or web address] weeks Center Shai R, 1522, gestation of Anjel Nath, 120, Medical Jace SPIVEY [place] [id number], [place], Anjel 120, [place] [id number] Jace, tel: , [place]. [place], tel: [phone]. [id number] tel:[phone] Lexus Mccormick Supervision of Sep-0 Shai Referring In Womens other high risk Cirilo. 700 Provider: Health NELLY, pregnancies, 7 Medical Cirilo PO Box third [email or web address] Center Shai R, 1522, weeks gestation Anjel Nath, of 120, Medical Jace [address] [id number], [place], Anjel 120, [place] [id number] Jace, tel:[phone] , [place]. [place] tel: [phone]. [id number] tel:[phone] Lexus Mccormick Supervision of Feb-2 Shai Referring In Womens other high risk 4-201 Cirilo. 700 Provider: Health PA, pregnancies, 7 Medical Cirilo PO Box third [id number] Center Shai R, 1522, weeks gestation Anjel Nath, of 120, Medical [place], [facility] [id number], [place], Anjel 120, [place] [id number] Jace, tel: , [place]. [place] tel: [phone]. [id number] tel:[phone] Lexus Mccormick Supervision of Feb-1 Shai Referring In Womens other high risk 0-201 Cirilo. 700 Provider: Health PA, pregnancies, 7 Medical Cirilo PO Box third [email or web address] Center Shai R, 1522, weeks gestation Anjel Nath, of 120, Medical [facility] [id number], [place], Anjel 120, [place] [id number] Jace, tel: , [place]. [place] tel: [phone]. [phone] tel:[phone] Lexus Mccormick Supervision of Jan-1 Shai Referring In Womens other high risk 3-201 Cirilo. 700 Provider: Health PA, pregnancies, 7 Medical Cirilo PO Box second Center Shai R, 1522, [email or web address] weeks Anjel Nath, gestation of 120, Medical [place], [facility] [id number], [place], Anjel 120, [place] [id number] Jace, tel: , [place]. [place] tel: [phone]. [id number] tel:[phone] Lexus Mccormick Supervision of Antione-0 Shai Referring In Womens other high risk 8-201 Cirilo. 700 Provider: Health PA, pregnancies, 7 Medical Cirilo PO Box second Center Shai R, 1522, weeks Anjel Nath, gestation of 120, Medical [place], Jace, Valery Nath [id number], [place], Anjel 120, [place] [id number] Jace, tel: , [place]. [place] tel:[phone]. [id number] tel:[phone] Lexus Mccormick Supervision of November-2 Shai Referring In Womens other high risk 6-201 Cirilo. 700 Provider: Health PA, pregnancies, 7 Medical Cirilo PO Box [facility] Center Shai R, 1522, [email or web address] weeks Anjel Nathta, gestation of 120, Medical [place], [facility] [id number], [place], Anjel 120, [place] [id number] Jace, tel: , [place]. [place] tel: [phone]. [id number] tel:[phone] Lexus Mccormick Supervision of November-1 Shai Referring In Womens other high risk 0-201 Cirilo. 700 Provider: Health PA, pregnancies, 7 Medical [facility] Box [facility] Center Shai R, 1522, weeks Anjel Nath, gestation of 120, Medical [place], [facility] [id number], [place], Anjel 120, [place] [id number] Jace, tel: , [place]. [place] tel: [phone]. [phone] tel:[phone] Lexus Mccormick Supervision of Apr-2 Shai Referring In Womens other high risk 0-201 Cirilo. 700 Provider: Health PA, pregnancies, 7 Medical [facility] Box [facility] Shai R, 1522, trimesterDiseases Anjel Nath, of the [facility] sys 120, Medical [place], comp , [facility] [id number], second [place], Anjel 120, [place] [email or web address] weeks [id number] Jace, tel: gestation of , [place]. [place] tel: [phone]. [phone] tel:[phone] Lexus Mccormick Supervision of Sep-3 Shai Referring In Womens other high risk 0-201 [place]. 700 Provider: Health PA, pregnancies, 7 Medical Cirilo PO Box [facility] Shai R, 1522, trimesterEncntr Anjel Nath 700 Dag[place], screen for 120, Medical [place], infections w sexl [facility] [id number], mode of [place], Anjel 120, [place] transmissEncounte [id number] Jace, tel: r for screening , [place], [address] for oth tel: [phone]. infec/parastc [id number] tel: diseasesEncounter [phone] for screening of [id number] weeks gestation of [facility] [place] state, [place] In Womens incidental 6-201 Geetha. Health [place], 7 700 PO [facility] [address], [place] [address] Dagmar, [facility] [place], 120, [id number], [facility], tel: [phone] , [place]. tel: [phone] Family History Family Member Diagnosis Age At Onset Immunizations Vaccine Date Status Comments Unknown Payers Payer name Insurance type Covered constitution party ID Authorization(s) [facility] ALLYSSA [id number] Social History Type Description Quantity Date Captured Alcohol Use Details No Caffeine Use Details Unknown Tobacco Use Status Unknown Smoking Status Never smoker Vital Signs Date / Height Weight BMI Pulse Blood Temperature Respiratory Body Head BMI Time: Rate Pressure Rate Surface Circumference percentile Area 157.30 26.1 125/79 lbs 7 mm[Hg] 1:29 kg/m PM eter (2) Chief Complaint And Reason For Visit Unknown Chief Complaint And Reason For Visit Reason For Referral Reason For Referral Unknown Plan Of Care Date Type Action Status Goal Lifestyle education regarding completed diet Appointment Tamela Aparicio BOOKED Future Order: Radiology Order Ultrasound OB Follow-up ([id number]) Ordered Date Type Problem Goal Intervention Status [...]
--- OUTSIDE RECORDS SUMMARY | 2017-05-06 02:01 | External Medical Summary | Referral Summary ---
:1989 Author [facility] Address [address] [place] [address] [place]YSSA [place] [address] Care Team Providers Name Role Phone Shayan Haynes Kellen Primary Care Physician Encounter VC Date(s): 04/03/15 - 04/03/15 [facility] [place] [address] [place] Discharge Diagnosis: Oral contraceptive pill surveillance Discharge Diagnosis: Axillary mass Discharge Diagnosis: Well woman exam with routine gynecological exam Discharge Disposition: 01-Home or Self Care Attending Physician: Ofelia Swift APRN Admitting Physician: Ofelia Swift APRN Vital Signs Most recent to oldest [Reference Range]: 1 Peripheral Pulse Rate [60-100 bpm] 66 bpm (04/03/15 1:43 PM) Blood Pressure [90-140/60-90 mmHg] 92/52 mmHg (04/03/15 1:43 PM) Problem List No data available for [...] Daily, # 84 tabs, 3 Refill(s), eRx: [facility], 1 tabs Oral Daily Start Date: 04/24/15 Status: OrderedPrenatal Multivitamins Oral, Daily, 0 Refill(s) Start Date: 04/03/15 Status: Ordered Results No data available for this section Immunizations Vaccine Date Refusal Reason influenza virus vaccine, live 06/17/13 Procedures No data available for this section Social History Social History Type Response Smoking Status Never smoker Assessment and Plan No data available for this section
--- OUTSIDE RECORDS SUMMARY | 2017-05-06 02:01 | External Medical Summary | Continuity of Care Document ---
:1989 Author Organization [facility] Address [address] [place], [place] [phone] Phone Care Team Providers Name Role Phone [...] Effective Dates (start - stop) Clinical Status Diseases of the circ sys comp - [...] Congestive Heart Failure Active Procedures Procedure Date Ultrasnd preg uterus, flwup/repeat Results Test Name Date and Time Measure Units Reference Range Abnormal Flag Comments Unknown Advance Directives Directive Yes / No Effective Date File Name Unknown Encounters Encounter Practice Location Reason(s) Diagnoses Date Provider Care Team Description For Visit Members Lexus Mccormick Supervision of Sep-2 Shai Referring In Womens other high risk 7-201 Cirilo. 700 Provider: Health NELLY, pregnancies, 7 Medical Cirilo PO Box third Center Shai R, 1522, trimesterEncounte Anjel Nath r for 120, [facility], screening of [address] [id number], [id number] weeks [place], [facility] 120, [place] gestation of [id number] Jace, tel: , [place]. [place], tel: [phone]. [id number] tel:[phone] Lexus Mccormick Sep-2 Shai In Womens 7-201 Cirilo. 700 Health PA, 7 Medical PO Box Center 1522, Anjel Nath, 120, [place], Jace, [id number], [place], [place] [id number] tel: , [place]. tel: [phone] Lexus Mccormick Supervision of Sep-2 Shai Referring In Womens other high risk 2-201 Cirilo. 700 Provider: Health NELLY, pregnancies, 7 Medical Cirilo PO Box third Center Shai R, 1522, weeks gestation Anjel Nath, of 120, Medical [facility] [id number], [place], Anjel 120, [place] [id number] Jace, tel:+ , [place]. [place], tel: [phone]. [phone] tel:[phone] Lexus Mccormick Supervision of Sep-1 Shai Referring In Womens other high risk 1-201 Cirilo. 700 Provider: Health PA, pregnancies, 7 Medical Cirilo PO Box third Center Shai R, 1522, trimesterDiseases Anjel Nath, of the circ sys 120, Medical [place], comp [facility], [place], [place] [id number], third [email or web address] ALLYSSA, [facility] 120, [place] weeks gestation [id number] Jace, tel: of , [place]. [place], tel: [phone]. [phone] tel:[phone] Lexus Mccormick Diseases of the Sep-1 Shai Referring In Womens Ultrasound circ sys comp 1-201 Cirilo. 700 Provider: Health PA, , third 7 Medical Cirilo PO Box [id number] weeks Center Shai R, 1522, gestation of Anjel Nath, 120, Medical [facility] [id number], [place], Anjel 120, [place] [id number] Jace, tel:+ , [place]. [place], tel: [phone]. [id number] tel:[phone] Lexus Mccormick Supervision of Sep-0 Shai Referring In Womens other high risk 1-201 Cirilo. 700 Provider: Health PA, pregnancies, 7 Medical Cirilo PO Box third [email or web address] Center Shai R, 1522, weeks gestation Anjel Nath, of 120, Medical [facility] [id number], [place], Anjel 120, [place] [id number] Jace, tel: , [place]. [place], tel: [phone]. [id number] tel:[phone] Lexus Mccormick Supervision of Aug-2 Shai Referring In Womens other high risk 4-201 Cirilo. 700 Provider: Health PA, pregnancies, 7 Medical Cirilo PO Box third [email or web address] Center Shai R, 1522, weeks gestation Anjel Nath, of 120, Medical [place], [facility] [id number], [place], Anjel 120, [place] [id number] Jace, tel: , [place]. [place], tel: [phone]. [phone] tel:[phone] Lexus Mccormick Supervision of Aug-1 Shai Referring In Womens other high risk 0-201 Cirilo. 700 Provider: Health PA, pregnancies, 7 Medical Cirilo PO Box third [email or web address] Center Shai R, 1522, weeks gestation Anjel Nath, of 120, Medical [place], Jace, [place] [id number], [place], Anjel 120, [place] [id number] Jace, tel: , [place]. [place], tel: [phone]. [phone] tel:[phone] Lexus Mccormick Supervision of Jan-1 Shai Referring In Womens other high risk 3-201 Cirilo. 700 Provider: Health PA, pregnancies, 7 Medical Cirilo PO Box second Center Shai R, 1522, [email or web address] weeks Anjel Nath, gestation of 120, Medical [place], Mccormick, [place] [id number], [place], Anjel 120, [place] [id number] Jace, tel: , [place]. [place], tel: [phone]. [id number] tel:[phone] Lexus Mccormick Supervision of Antione-0 Shai Referring In Womens other high risk 8-201 Cirilo. 700 Provider: Health PA, pregnancies, 7 Medical Cirilo PO Box second Center Shai R, 1522, [email or web address] weeks Anjel Nath, gestation of 120, Medical [place], Mccormick, [place] [id number], [place], Anjel 120, [place] [id number] Jace, tel: , [place]. [place] tel: [phone]. [phone] tel:[phone] Lexus Mccormick Supervision of May-2 Shai Referring In Womens other high risk 6-201 Cirilo. 700 Provider: Health PA, pregnancies, 7 Medical Cirilo PO Box second Center Shai R, 1522, [email or web address] weeks Anjel Nath, gestation of 120, Medical [place], [facility] [id number], [place], Anjel 120, [place] [id number] Jace, tel: , [place]. [place] tel:[phone]. [phone] tel:[phone] Lexus Mccormick Supervision of November- Shai Referring In Womens other high risk 0-201 Cirilo. 700 Provider: Health PA, pregnancies, 7 [facility] Box second Center Shai R, 1522, [email or web address] weeks , [facility] Fabiana [place], gestation of 120, Medical [place], [facility] [id number], [place], Anjel 120, [place] [id number] Jace, tel: , [place]. [place], tel:[phone]. [phone] tel:[phone] Lexus Mccormick Supervision of Apr-2 Shai Referring In Womens other high risk 0-201 Cirilo. 700 Provider: Health PA, pregnancies, 7 [facility] first [place] Shai R, 1522, trimesterDiseases , [place] [address] Dagmar, of the [facility] sys 120, Medical [place], comp , Jace, [place] [id number], second [place], Anjel 120, [place] [email or web address] weeks [id number] Jace, tel: gestation of , [place]. [place] tel: [phone]. [id number] tel:[phone] Lexus Mccormick Supervision of Sep-3 Shai Referring In Womens other high risk 0-201 Cirilo. 700 Provider: Health PA, pregnancies, 7 Medical [facility] first Center Shai R, 1522, trimesterEncntr , [place] [address] Dagmar, screen for 120, Medical [place], [facility]l [facility] [id number], mode of [place], Anjel 120, [place] transmissEncounte [id number] Jace, tel: r for screening , [place]. [place], for oth tel:[phone]. infec/parastc [id number] tel: diseasesEncounter [phone] for screening of [id number] weeks gestation of Lexus Mccormick state, Sep- [place] In Womens incidental 6-201 Geetha. Health PA, [address] [place] [address] 15[address], [place] [address] [place] [address] [place], 120, [id number], [place], [place], tel:[phone] [phone] , [place]. tel: [phone] Family History Family Member Diagnosis Age At Onset Immunizations Vaccine Date Status Comments Tdap completed Source: New Immunization Record Payers Payer name Insurance type Covered democrat ID Authorization(s) [facility] [id number] [facility] [id number] Social History Type Description Quantity Date Captured [...] Future Order: Radiology Order Ultrasound OB Follow-up ([id number]) Ordered Date Type Problem Goal Intervention Status [...]
--- OUTSIDE RECORDS SUMMARY | 2017-05-06 02:01 | External Medical Summary ---
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 55420063 disorders Problem PFO 745.5 Active 645389525 Problem Congenital Heart 746.9 Active 78508094 Disease Problem Syncope 780.2 Active 678801213 Problem Dyspnea on 786.09 Active 26066631 exertion Problem Tricuspid valve 424.2 Active 953962404 disorders, specified as nonrheumatic Problem Z33.1 Active 939901605 Problem Congenital heart Q24.9 Active 11882387 disease Problem Pulmonary valve I37.9 Active 23209086 disorders Problem Tricuspid valve I36.9 Active 563025341 disorders, non-rheumatic Problem PFO (patent Q21.1 Active 250983386 foramen ovale) Problem Syncope R55 Active 146124401 ALLERGIES Substance Reaction Event Type Date Status Amoxicillin Unknown Drug Allergy Oct, Active SOCIAL HISTORY No smoking Hx information available PLAN OF CARE Activity Details Follow Up 5 Months Reason:null VITAL SIGNS Height 64 in 2016-10-28 Weight 129 lbs 2016-10-28 BMI 22.14 kg/m2 2016-10-28 Oximetry 98 % 2016-10-28 Heart Rate 59 /min 2016-10-28 Blood pressure systolic 124 mm Hg 2016-10-28 Blood pressure diastolic 72 mm Hg 2016-10-28 MEDICATIONS Medication Instructions Dosage Frequency Start End Date Duration Status Date Cephalexin 500 Orally 30-60 min 4 capsules Aug, 1 days Active MG prior to 2017 procedure Orally qd 1 tab 24h Active Aspirin 81 MG Orally Once a 1 tablet 24h Active day RESULTS No Results PROCEDURES Procedure Date Ordered Related Diagnosis Body Site Office Visit, Est Pt., Level 3 October 28, 2016 IMMUNIZATIONS No Known Immunizations
--- OUTSIDE RECORDS SUMMARY | 2017-05-06 02:01 | External Medical Summary | Referral Summary ---
:1989 Author Organization [facility] Address [address] [place] [address] [place]YSSA [place] [address] Care Team Providers Name Role Phone Shayan Haynes Primary Care Physician Encounter VC Date(s): 05/01/15 - 05/01/15 [facility] [address] [place] [address] [place]SS[place] [address] [place] Discharge Diagnosis: Axillary lump Discharge Disposition: 01-Home [...] Daily, # 84 tabs, 3 Refill(s), eRx: [facility], 1 tabs Oral Daily Start Date: [...] lump Ordered: Office Visit Level 4 New [id number] Plan: Ongoing Clinical Observation/Follow-Up. No Need for Surgical Intervention/Biopsy at This Time. I did review the patient's chartincluding office note performed by PCPs drafting engineer fromApril 03, 2015. Reviewedultrasound of left breast [...]
--- OUTSIDE RECORDS SUMMARY | 2017-05-06 02:01 | External Medical Summary ---
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 16468834 disorders Problem Syncope 780.2 Active 775704257 Problem Dyspnea on 786.09 Active 37631925 exertion Problem Congenital heart Q24.9 Active 81163849 disease Problem PFO (patent Q21.1 Active 732377557 foramen ovale) Problem Tricuspid valve I36.9 Active 322379328 disorders, non-rheumatic Problem PFO 745.5 Active 642736718 Problem Syncope R55 Active 284384344 Problem Pulmonary valve I37.9 Active 24962071 disorders ALLERGIES Unknown Allergies SOCIAL HISTORY No smoking Hx information available PLAN OF CARE VITAL SIGNS MEDICATIONS Unknown Medications RESULTS No Results PROCEDURES No Known procedures IMMUNIZATIONS No Known Immunizations
--- OUTSIDE RECORDS SUMMARY | 2017-05-06 02:01 | External Medical Summary | Continuity of Care Document ---
:1989 Author Organization [facility] Address [address] [place], [place] [id number] Phone Care Team Providers Name Role Phone [...] third trimester 31 weeks gestation of - Supervision of other high risk - pregnancies, third trimester 32 weeks gestation of - Diseases of the [...] Shai Referring In Womens circ sys comp Ciriol. 700 Provider: Eleanor VILLEGAS, , third 7 Medical Cirilo [address] trimesterSupervis Center Shai R, 1522, ion of other high Anjel Nath, risk pregnancies, 120, Medical [place], third [id number] Jace [place] [id number], weeks gestation [place] Anjel 120, [place] of [id number] Jace, tel: , [place]. [place], tel: [phone]. [phone] tel:[phone] Lexus Mccormick Diseases of the Sep-1 Shai Referring In Womens Ultrasound circ sys comp Cirilo. 700 Provider: Eleanor VILLEGAS, , third 7 Medical Cirilo PO Box [email or web address] weeks Center Shai R, 1522, gestation of Anjel Nath, 120, Medical [facility] [id number], [place], [place]jel 120, [place] [id number] Jace, tel: , [place], tel: [phone]. [id number] tel:[phone] Lexus Mccormick Supervision of Sep-0 Shai Referring In Womens other high risk Cirilo. 700 Provider: Eleanor VILLEGAS, pregnancies, 7 Medical Cirilo PO Box third [email or web address] Center Shai R, 1522, weeks gestation Anjel Nath, of 120, Medical Jace SPIVEY [place] [id number], [place], Anjel 120, [place] [id number] Jace, tel:[phone] , [place]. [place] tel: [phone]. [id number] tel:[phone] Lexus Mccormick Aug-3 Shai In Womens 1-201 Cirilo. 700 Health PA, 7 Medical PO Box Center 1522, Anjel Nath, 120, ALLYSSA, [place], [id number], [place], [place] [id number] tel: , [place]. tel: [phone] Lexus Mccormick Supervision of Aug-2 Shai Referring In Womens other high risk 4-201 Cirilo. 700 Provider: Health PA, pregnancies, 7 Medical Cirilo PO Box third [email or web address] Center Shai R, 1522, weeks gestation Anjel Nath, of 120, Medical [place], [facility] [id number], [place], [place]jel 120, [place] [id number] Jace, tel: , [place]. [place], tel: [phone]. [phone] tel:[phone] Lexus Mccormick Supervision of Aug-1 Shai Referring In Womens other high risk 0-201 Cirilo. 700 Provider: Health PA, pregnancies, 7 Medical Criilo PO Box third [email or web address] Center Shai R, 1522, weeks gestation Anjel Nath, of 120, Medical [place], [facility] [id number], [place], [facility] 120, [place] [id number] Jace, tel: , [place]. [place], tel: [phone]. [id number] tel:[phone] Lexus Mccormick Supervision of Irwin-1 Shai Referring In Womens other high risk 3-201 Cirilo. 700 Provider: Health PA, pregnancies, 7 Medical Cirilo PO Box second Center Shai R, 1522, [id number] weeks Anjel Nath, gestation of 120, Medical [place], [facility] [id number], [place], Anjel 120, [place] [id number] Jace, tel: , [place]. [place] tel: [phone]. [id number] tel:[phone] Lexus Mccormick Supervision of Antione-0 Shai Referring In Womens other high risk 8-201 [place]. 700 Provider: Health PA, pregnancies, 7 Medical Cirilo PO Box second Center Shai R, 1522, [email or web address] weeks Anjel Nath [place], gestation of 120, Medical [place], [facility] [id number], [place], Anjel 120, [place] [id number] Jace, tel: , [place]. [place], tel: [phone]. [id number] tel:[phone] Lexus Mccormick Supervision of November-2 Shai Referring In Womens other high risk 6-201 Cirilo. 700 Provider: Health PA, pregnancies, 7 Medical Cirilo PO Box second Center Shai R, 1522, [email or web address] weeks Anjle Nath, gestation of 120, Medical [place], [facility] [id number], [place], Anjel 120, [place] [id number] Jace, tel: , [place]. [place], tel: [phone]. [id number] tel:[phone] Lexus Mccormick Supervision of November-1 Shai Referring In Womens other high risk 0-201 Cirilo. 700 Provider: Health PA, pregnancies, 7 Medical Cirilo PO Box second Center Shai R, 1522, [email or web address] weeks Anjel Nath, gestation of 120, Medical [place], [facility] [id number], [place], [facility] 120, [place] [id number] Jace, tel: , [place]. [place], tel: [phone]. [id number] tel:[phone] Lexus Mccormick Supervision of Oct-2 Shai Referring In Womens other high risk 0-201 Cirilo. 700 Provider: Health PA, pregnancies, 7 Medical Cirilo PO Box first Center Shai R, 1522, trimesterDiseases Anjel Nath, of the psychiatric sys 120, Medical [place], comp , [facility] [id number], second [place], [facility] 120, [place] [email or web address] weeks [id number] Jace, tel: gestation of , [place]. [place] tel: [phone]. [id number] tel:[phone] Lexus Mccormick Supervision of Sep-3 Shai Referring In Womens other high risk 0-201 Cirilo. 700 Provider: Health PA, pregnancies, 7 Medical Cirilo PO Box first Center Shai R, 1522, trimesterEncntr , Anjel 700 [place], screen for 120, Medical [place], infections w zinal Jace, [place] [id number], mode of [place], Anjel 120, [place] transmissEncounte [id number] Jace, tel: r for screening , [place]. [place], for oth tel: [phone]. infec/parastc [id number] tel: diseasesEncounter [phone] for screening of [id number] weeks gestation of Associates Mccormick state, [place] In Womens incidental 6-201 [facility], 7 700 [facility], [place] [address] [place], [facility] [place], 120, [id number], [place], [place], tel: [phone] [address] , [place]. tel: [phone] Family History Family Member Diagnosis Age At Onset Immunizations Vaccine Date Status Comments Unknown Payers Payer name Insurance type Covered constitution party ID Authorization(s) [facility] [id number] Social History Type Description Quantity Date Captured [...] Future Order: Radiology Order Ultrasound OB Follow-up ([id number]) Ordered Date Type Problem Goal Intervention Status [...]
--- OUTSIDE RECORDS SUMMARY | 2017-05-06 02:01 | External Medical Summary ---
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 Problem PFO 745.5 Active Problem Syncope 780.2 Active Assessment Congenital Heart Disease 746.9 Active Problem Tricuspid valve disorders, 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 Problem Dyspnea on exertion 786.09 Active Medications Medication Code System Code Instructions Start End Date Status Dosage Date Citalopram [facility] 66531-70 20 MG Orally 1 tablet Hydrobromide 41-01 Once a day Ocella [facility] 27550-23 3-0.03 MG Orally 1 [place] 31-67 [place] [address]-83 Orally qd 1 tab 06-10 Aspirin [facility] 83644-96 81 MG Orally 1 tablet 74-68 Once a day Procedures Procedure Coding System Code Date Office Visit, Est Pt., Level 3 CPT-4 71417 Mar 06, 2015 ELECTROCARDIOGRAM, COMPLETE CPT-4 85203 Mar 06, 2015 Vital Signs Date/Time: Mar 06, 2015 BMI 21.97 Index Weight 128 lbs Height 64 in Cardiac Monitoring Heart Rate 64 /min Oximetry 99% % Blood Pressure Diastolic 66 mm Hg Blood Pressure Systolic 114 mm Hg Results No Known Results Summary Purpose [employer] Submission
--- OUTSIDE RECORDS SUMMARY | 2017-05-06 02:01 | External Medical Summary | Continuity of Care Document ---
:1989 Author Organization [facility] Address [address] [place], [place] [id number] Phone Care Team Providers Name Role Phone [...] third trimester 31 weeks gestation of - state, incidental Supervision [...] high Anjel Nath, risk pregnancies, 120, Medical [place], third [email or web address] [id number], weeks gestation [place], [facility] 120, [place] of [id number] Jace, tel:+2 , [place]. [place], tel: [phone]. [id number] tel:[phone] Lexus Mccormick Diseases of the Sep-1 Shai Referring In Womens Ultrasound circ sys comp Cirilo. 700 Provider: Eleanor VILLEGAS, , third 7 Medical Cirilo PO Box [email or web address] weeks Center Shai R, 1522, gestation of Anjel Nath, 120, Medical Jace SPIVEY [place] [id number], [place], Anjel 120, [place] [id number] Jace, tel:2 , [place]. [place], tel: [phone]. [id number] tel:[phone] Lexus Mccormick Supervision of Sep-0 Shai Referring In Womens other high risk Cirilo. 700 Provider: Health NELLY, pregnancies, 7 Medical Cirilo PO Box third Center Shai R, 1522, weeks gestation Anjel Nath, of 120, Medical Jace [address] [id number], [place], Anjel 120, [place] [id number] Jace, tel:[phone] , [place]. [place] tel: [phone]. [id number] tel:[phone] Lexus Mccormick Supervision of Feb-2 Shai Referring In Womens other high risk 4-201 Cirilo. 700 Provider: Health PA, pregnancies, 7 Medical Cirilo PO Box third [email or web address] Center Shai R, 1522, weeks gestation Anjel Nath, of 120, Medical ALLYSSA, [facility] [id number], [place], Anjel 120, [place] [id number] Jace, tel: , [place]. [place] tel: [phone]. [id number] tel:[phone] Lexus Mccormick Supervision of Feb-1 Shai Referring In Womens other high risk 0-201 Cirilo. 700 Provider: Health PA, pregnancies, 7 Medical Cirilo PO Box third [email or web address] Center Shai R, 1522, weeks gestation Anjel Nath, of 120, Medical [facility] [id number], [place], Anjel 120, [place] [id number] Jace, tel: , [place]. [place] tel: [phone]. [id number] tel:[phone] Lexus Mccormick Supervision of Jan-1 Shai Referring In Womens other high risk 3-201 Cirilo. 700 Provider: Health PA, pregnancies, 7 Medical Cirilo PO Box second Center Shai R, 1522, [email or web address] weeks Anjel Nath, gestation of 120, Medical [place], [facility] [id number], [place], Anjel 120, [place] [id number] Jace, tel: , [place]. [place] tel: [phone]. [phone] tel:[phone] Lexus Mccormick Supervision of Antione-0 Shai Referring In Womens other high risk 8-201 Cirilo. 700 Provider: Health PA, pregnancies, 7 Medical Cirilo PO Box second Center Shai R, 1522, [email or web address] weeks Anjel Nath, gestation of 120, Medical [place], Jace, Valery Nath [id number], [place], Anjel 120, [place] [id number] Jace, tel: , [place]. [place] tel:[phone]. [id number] tel:[phone] Lexus Mccormick Supervision of November-2 Shai Referring In Womens other high risk 6-201 Cirilo. 700 Provider: Health PA, pregnancies, 7 Medical Cirilo PO Box [facility] Center Shai R, 1522, [email or web address] weeks Anjel Nat[place], gestation of 120, Medical [place], [facility] [id number], [place], A[place] 120, [place] [id number] Jace, tel: , [place]. [place] tel: [phone]. [id number] tel:[phone] Lexus Mccormick Supervision of November-1 Shai Referring In Womens other high risk 0-201 Cirilo. 700 Provider: Health PA, pregnancies, 7 Medical [facility] Box [facility] Center Shai R, 1522, [id number] weeks Anjel Nath, gestation of 120, Medical [place], [facility] [id number], [place], Anjel 120, [place] [id number] Jace, tel: , [place]. [place] tel: [phone]. [id number] tel:[phone] Lexus Mccormick Supervision of Apr-2 Shai Referring In Womens other high risk 0-201 Cirilo. 700 Provider: Health PA, pregnancies, 7 Medical [facility] Box [facility] Shai R, 1522, trimesterDiseases Anjel Nath, of the [facility] sys 120, Medical [place], comp , [facility] [id number], second [place], Anjel 120, [place] weeks [id number] Jace, tel: gestation of , [place]. [place] tel: [phone]. [phone] tel:[phone] Lexus Mccormick Supervision of Sep-3 Shai Referring In Womens other high risk 0-201 [place]. 700 Provider: Health PA, pregnancies, 7 Medical Cirilo PO Box [facility] Shai R, 1522, trimesterEncntr Anjel Nath 700 [place], screen for 120, Medical [place], [facility] [id number], mode of [place], Anjel 120, [place] transmissEncounte [id number] Jace, tel: r for screening , [place]. [place], [address] for oth tel: [phone]. infec/parastc [id number] tel: diseasesEncounter [phone] for screening of [email or web address] weeks gestation of [facility] state, [place] In Womens incidental 6-201 Geetha. Health [place], 7 700 PO [facility] [address], [place] [address] [place], [facility] [place], 120, [id number], [facility], tel: [phone] , [place]. tel: [phone] Family History Family Member Diagnosis Age At Onset Immunizations Vaccine Date Status Comments Unknown Payers Payer name Insurance type Covered constitution party ID Authorization(s) [facility] ALLYSSA [id number] Social History Type Description Quantity Date Captured Alcohol Use Details No Caffeine Use Details Unknown Tobacco Use Status Never smoked tobacco Smoking Status Never smoker Vital Signs Date / Height Weight BMI Pulse Blood Temperature Respiratory Body Head BMI Time: Rate Pressure Rate Surface Circumference percentile Area 155.10 25.8 113/74 lbs 1 mm[Hg] 11:08 kg/m AM eter (2) Chief Complaint And Reason For Visit Unknown Chief Complaint And Reason For Visit Reason For Referral Reason For Referral Unknown Plan Of Care Date Type Action Status Goal Lifestyle education regarding completed diet Appointment Tamela Aparicio BOOKED Future Order: Radiology Order Ultrasound OB Follow-up ([id number]) Ordered Date Type Problem Goal Intervention Status [...]
--- OUTSIDE RECORDS SUMMARY | 2017-05-06 02:01 | External Medical Summary | Continuity of Care Document ---
:1989 Author Organization [facility] [facility] [facility] Address [address] [place], [place] [phone] Phone Care Team Providers Name Role Phone [...] Womens circ sys comp Cirilo. 700 Provider: Eleanor VILLEGAS, , third 7 Medical Cirilo PO Box trimesterSupervis Center Shai R, 1522, ion of other high Anjel Nath, risk pregnancies, 120, Medical [place], third [email or web address] Jace [place] [id number], weeks gestation [place] Anjel 120, [place] of [id number] Jace, tel: , [place]. [place], tel: [phone]. [id number] tel:[phone] Lexus Mccormick Diseases of the Sep-1 Shai Referring In Womens Ultrasound circ sys comp Cirilo. 700 Provider: Eleanor VILLEGAS, , third 7 Medical Cirilo PO Box [email or web address] weeks Center Shai R, 1522, gestation of Anjel Nath, 120, Medical [facility] [id number], [place], Anjel 120, [place] [id number] Jace, tel: , [place]. [place], tel: [phone]. [id number] tel:[phone] Lexus Mccormick Supervision of Sep-0 Shai Referring In Womens other high risk Cirilo. 700 Provider: Eleanor VILLEGAS, pregnancies, 7 Medical Cirilo PO Box third [email or web address] Center Shai R, 1522, weeks gestation Anjel Nath, of 120, Medical Jace SPIVEY [place] [id number], [place], Anjel 120, [place] [id number] Jace, tel:[phone] , [place]. [place] tel: [phone]. [id number] tel:[phone] Lexus Mccormick Supervision of Aug-2 Shai Referring In Womens other high risk 4-201 [place]. 700 Provider: Health PA, pregnancies, 7 Medical Cirilo PO Box third [email or web address] Center Shai R, 1522, weeks gestation Anjel Nath, of 120, Medical [facility] [id number], [place], Anjel 120, [place] [id number] Jace, tel: , [place]. [place], tel: [phone]. [id number] tel:[phone] Lexus Mccormick Aug-2 Shai In Womens 3-201 Cirilo. 700 Health PA, 7 Medical PO Box Center 1522, Anjel Nath, 120, [place], [place], [id number], [place], [place] [id number] tel: , [place]. tel: [phone] Lexus Mccormick Supervision of Aug-1 Shai Referring In Womens other high risk 0-201 Cirilo. 700 Provider: Health PA, pregnancies, 7 Medical Cirilo PO Box third [email or web address] Center Shai R, 1522, weeks gestation Anjel Nath, of 120, Medical [facility] [id number], [place], Anjel 120, [place] [id number] Jace, tel: , [place]. [place], tel: [phone]. [id number] tel:[phone] Lexus Mccormick Supervision of Irwin-1 Shai Referring In Womens other high risk 3-201 Cirilo. 700 Provider: Health PA, pregnancies, 7 Medical Cirilo PO Box second Center Shai R, 1522, [id number] weeks Anjel Nath, gestation of 120, Medical [place], [facility] [id number], [place], Anjel 120, [place] [id number] Jace, tel: , [place]. [place], tel: [phone]. [id number] tel:[phone] Lexus Mccormick Supervision of Antione-0 Shai Referring In Womens other high risk 8-201 [place]. 700 Provider: Health PA, pregnancies, 7 Medical Cirilo PO Box second Center Shai R, 1522, [email or web address] weeks Anjel Nath [place], gestation of 120, Medical [place], [facility] [id number], [place], Anjel 120, [place] [id number] Jace, tel: , [place]. [place], tel: [phone]. [id number] tel:[phone] Lexus Mccormick Supervision of November-2 Shai Referring In Womens other high risk 6-201 Cirilo. 700 Provider: Health PA, pregnancies, 7 Medical Cirilo PO Box second Center Shai R, 1522, [id number] weeks Anjel Nath, gestation of 120, Medical [place], [facility] [id number], [place], Anjel 120, [place] [id number] Jace, tel: , [place]. [place], tel: [phone]. [id number] tel:[phone] Lexus Mccormick Supervision of November-1 Shai Referring In Womens other high risk 0-201 Cirilo. 700 Provider: Health PA, pregnancies, 7 Medical Cirilo PO Box second Center Shai R, 1522, [id number] weeks Anjel Nath, gestation of 120, Medical [place], [facility] [id number], [place], [facility] 120, [place] [id number] Jace, tel: , [place]. [place], tel: [phone]. [id number] tel:[phone] Lexus Mccormick Supervision of Oct-2 Shai Referring In Womens other high risk 0-201 Cirilo. 700 Provider: Health PA, pregnancies, 7 Medical Cirilo PO Box first Center Shai R, 1522, trimesterDiseases Anjel Nath, of the [facility] sys 120, Medical [place], comp , [facility] [id number], second [place], [facility] 120, [place] [id number] weeks [id number] Jace, tel: gestation of , [place]. [place] tel: [phone]. [id number] tel:[phone] Lexus Mccormick Supervision of Sep-3 Shai Referring In Womens other high risk 0-201 Cirilo. 700 Provider: Health PA, pregnancies, 7 Medical Cirilo PO Box first Center Shai R, 1522, trimesterEncntr , Anjel 700 [place], screen for 120, Medical [place], infections w zinal Jace, [place] [id number], mode of [place], Anjel 120, [place] transmissEncounte [id number] Jace, tel: r for screening , [place]. [place], for oth tel: [phone]. infec/parastc [id number] tel: diseasesEncounter [phone] for screening of [id number] weeks gestation of Associates Mccormick state, [place] In Womens incidental 6-201 [facility], 7 700 PO [facility] [address], [place] [address] [place], [facility] [place], 120, [id number], [place], [place], tel: [phone] [phone] , [place]. tel: [phone] Family History Family Member Diagnosis Age At Onset Immunizations Vaccine Date Status Comments Unknown Payers Payer name Insurance type Covered libertarian ID Authorization(s) [facility] [id number] Social History Type Description Quantity Date Captured [...] Future Order: Radiology Order Ultrasound OB Follow-up ([id number]) Ordered Date Type Problem Goal Intervention Status [...]
[2017-05-06] MEDS ORDERED: CARBOPROST 250 MCG/ML INJECTION IM PRN (02:03)
[2017-05-06] MEDS ORDERED: CALCIUM CARBONATE Chewable 500mg TABLET PO PRN ×3 (02:03→13:15)
[2017-05-06] MEDS ORDERED: ACETAMINOPHEN 500 MG TABLET PO PRN ×2 (02:03→12:49)
[2017-05-06] MEDS ORDERED: LIDOCAINE 1% (10mg/ml) 2mL INJ PF SDV ID PRN (02:03)
[2017-05-06] MEDS ORDERED: MAG-AL + SIM ORAL LIQUID 30ml PO PRN (02:03)
[2017-05-06] MEDS ORDERED: METHYLERGONOVINE 0.2 MG/ML INJECTION IM PRN (02:03)
[2017-05-06 02:18] VITALS: BMI 28.3
[2017-05-06] MEDS: LR 1,000 ML IV PRN ×3 (02:18→12:15)
--- NOTE | 2017-05-06 02:36 | Anesthesia Preoperative Report ---
Anesthesia Epidural/Spinal Rec - Date and Time Date: 05/06/17 Procedure: Labor Epidural Plan: Epidural - Vital Signs Vital Signs: 144/85 71 /Para: G: P: - Medictaions & Allergies Inpatient Medications: Current Medications Acetaminophen (Tylenol) 500 - 1,000 mg PO Q4H PRN PRN Reason: Pain Al Hydroxide/Mg Hydroxide (Maalox Plus) 30 ml PO Q3H PRN PRN Reason: Indigestion Calcium Carbonate (Tums) 500 - 1,000 mg PO Q2H PRN PRN Reason: Indigestion Carboprost Tromethamine (Hemabate) 250 mcg IM O PRN PRN Reason: .Downtime Cephalexin HCl (Keflex) 500 mg PO O DARIN Cephalexin HCl (Keflex) 250 mg PO Q6HR DARIN Lactated Ringer's (Lactated Ringers) 1,000 mls @ 999 mls/hr IV .Q1H1M PRN Last Admin: 05/06/17 02:18 Dose: 999 mls/hr Lidocaine HCl (Xylocaine-Mpf 1% Vial) 0.2 mg ID O PRN PRN Reason: IV Start Methylergonovine Maleate (Methergine) 0.2 mg IM O PRN Misoprostol (Cytotec) 800 mcg TX ONCE PRN Allergies/Adverse Reactions: Allergies Allergy/AdvReac Type Severity Reaction Status Date / Time No Known Allergies Allergy Verified 05/06/17 02:14 - Home Medications Home Medications: Home Medications Medication Instructions Recorded Confirmed Type One Tablet 1 tab PO DAILY 05/06/17 05/06/17 History - Medical History Cardiovascular: Reports: Valvular Heart Disease (Congenital defect repaired in 2009. (tricuspid/pulmonic-one repaired/o), Other ((tricuspid/pulmonic-one repaired/one replaced pt not sure which)) Other History: Reports: Now - Surgical History Anesthesia Reactions: None Hx Family Anesthesia Reaction: No History of Motion Sickness: No - Social History Smoking Status: Never smoker Substance Use Type: does not use - Pertinent Findings Lab Data: CBC and BMP 05/06/17 02:13 EKG Rhythm: Normal Sinus Rhythm - Physical Exam Respiratory Exam: lungs clear, bilateral breath sounds equal Cardiovascular Exam: regular rate and rhythm, no murmur - Airway Assessment Mallampati Score: II TMD: 3 Fingerbreadths Neck Extension: good Overall Assessment: may be difficult intubation - ASA ASA Score: 2 - Discussion Discussion: Discussed risks/options/alternatives of anesthesia and questions answered. Patient consents. Nursing pain assessment noted. Anesthesia Discussion: spouse Attestation Statement: Prior to the delivery of any anesthetic medication, I examined the patient, developed the plan, obtained the patient's consent and discussed the risk and benefits of the procedure with the patient/guardian.
[2017-05-06] MEDS ORDERED: CEFAZOLIN PREMIX (MC ONLY) 2 GM/50 ML BAG IV ONE (03:00)
[2017-05-06] MEDS ORDERED: CEFAZOLIN 1 G in NS 100 ML IV SCH (11:00)
[2017-05-06] MEDS ORDERED: FAMOTIDINE PB 20 MG/50 ML BAG IV ONE (11:03)
[2017-05-06] MEDS ORDERED: CITRIC ACID/SODIUM CITRATE 30ml PO ONE (11:05)
[2017-05-06] MEDS ORDERED: AZITHROMYCIN IV 500 MG in NS 250ml 250 ML IV ONE (11:45)
[2017-05-06] MEDS ORDERED: TRANEXAMIC ACID 1,000 MG in NS 100 ML IV ONE (11:49)
[2017-05-06] MEDS ORDERED: OXYTOCIN BOLUS BAG 30 UNIT/500 ML ML IV SCH (11:51)
[2017-05-06] MEDS ORDERED: FentaNYL 100 MCG/2 ML INJECTION ONE (12:19)
[2017-05-06] MEDS ORDERED: DiphenhydrAMINE 50 MG/ML INJECTION ONE (12:30)
[2017-05-06] MEDS ORDERED: MORPHINE PCA 30 MG/30 ML SYRINGE IV PRN (12:49)
[2017-05-06] MEDS ORDERED: METOCLOPRAMIDE 10mg/2ml INJECTION IVP PRN (12:49)
[2017-05-06] MEDS ORDERED: ONDANSETRON 4 MG/2 ML INJECTION IVP PRN ×2 (12:49→12:56)
[2017-05-06] MEDS ORDERED: OXYTOCIN DRIP 30 UNIT/500 ML ML IV SCH (12:49)
[2017-05-06] MEDS ORDERED: DiphenhydrAMINE 25 MG CAPSULE PO PRN (12:49)
[2017-05-06] MEDS ORDERED: HYDROCORTISONE 2.5% CREAM 30gm RECTALLY PRN (12:49)
[2017-05-06] MEDS ORDERED: D5LR 1,000 ML IV SCH (12:49)
[2017-05-06] MEDS ORDERED: SALINE FLUSH 10ml SYRINGE IV PRN (12:49)
[2017-05-06] MEDS ORDERED: NALOXONE 2 MG/2 ML INJECTION PFS IVP PRN (12:56)
[2017-05-06] MEDS ORDERED: DiphenhydrAMINE 50 MG/ML INJECTION IVP PRN (12:56)
[2017-05-06] MEDS ORDERED: ROPIVACAINE 0.2% 2MG/ML INJ 40 MG, SUFentanil 50 MCG in NS 100 ML INFIL ONE (13:39)
[2017-05-06] MEDS: IBUPROFEN 800 MG TABLET PO PRN (17:27)
[2017-05-06] MEDS: HYDROCODONE/APAP 5mg/325mg TABLET PO PRN ×2 (17:27→21:30)
[2017-05-06] MEDS: CEFTRIAXONE 1 G in NS 100 ML IV SCH (19:00)
[2017-05-06] MEDS: SIMETHICONE 80 MG CHEWABLE TABLET PO SCH ×3 (21:58→22:01)
[2017-05-07] MEDS: IBUPROFEN 800 MG TABLET PO PRN ×3 (01:36→20:20)
[2017-05-07] MEDS: SIMETHICONE 80 MG CHEWABLE TABLET PO PRN ×2 (01:37→15:48)
[2017-05-07] MEDS: HYDROCODONE/APAP 5mg/325mg TABLET PO PRN ×5 (01:38→20:21)
[2017-05-07] MEDS: CEFTRIAXONE 1 G in NS 100 ML IV SCH (08:00)
[2017-05-07] MEDS: DOCUSATE CALCIUM 240 MG CAPSULE PO SCH (10:30)
[2017-05-07] MEDS: SIMETHICONE 80 MG CHEWABLE TABLET PO SCH ×3 (10:31→20:20)
--- NOTE | 2017-05-07 12:58 | OB/GYN Progress Note ---
OB-PP Progress Note - General PPD1 POD:: POD1 Maternal blood type: O+ Maternal Rubella Status: Immune - Subjective Date: 05/07/17 Lochia: Minimal Pain: contolled Voiding: voiding Nausea or Vomiting Present: No - Objective Vital Signs: Last Vital Signs Temp 97.6 F 05/07/17 10:00 Pulse 79 05/07/17 10:00 Resp 17 05/07/17 10:00 BP 130/77 05/07/17 10:00 Pulse Ox 96 05/07/17 06:19 Urine Output: good General: alert and oriented Abdomen: fundus firm, non-tender Incision: normal, dry, intact Extremities: non-tender Edema: none Laboratory: Laboratory Results - last 24 hr 05/06/17 18:09 WBC 20.7 H D RBC 3.44 L Hgb 10.8 L Hct 32.0 L D MCV 93.0 MCH 31.4 MCHC 33.8 RDW Std Deviation 40.2 Plt Count 151 MPV 11.1 - Assessment Assessment: SP, Primary C/S - Plan Plan: routine care Expected date of discharge: 05/08/17
--- NOTE | 2017-05-07 18:35 | Anesthesia Postoperative Note ---
- Date and Time Date: 05/07/17 Time: 18:34 - Status Patient Participated in Evaluation: Patient Participated in Person Vital Signs: Temperature 98.6 F 05/07/17 15:45 Pulse Rate 74 05/07/17 15:45 Respiratory Rate 16 05/07/17 15:45 Blood Pressure 134/83 05/07/17 15:45 Pulse Oximetry 96 05/07/17 15:45 Respiratory Function: Airway Patent Cardiovascular Function: Regular Pulse EKG: Sinus Rhythm Mental Status: Alert and Oriented Hydration: Taking PO Fluids Complications During Recover: None Apparent - Follow-Up Instructions Instructions: Per Surgeon
[2017-05-08] MEDS: SIMETHICONE 80 MG CHEWABLE TABLET PO SCH ×2 (00:33→11:29)
[2017-05-08] MEDS: HYDROCODONE/APAP 5mg/325mg TABLET PO PRN ×3 (00:33→11:28)
[2017-05-08] MEDS: IBUPROFEN 800 MG TABLET PO PRN (06:41)
--- NOTE | 2017-05-08 08:31 | Discharge Instructions ---
Discharge Plan - Med Rec/Dispo Prescriptions: New Hydrocodone/APAP 5/325 [[place] 5/325] 1 - 2 tab PO Q4H PRN #30 tab PRN Reason: Pain Ibuprofen [Motrin] 800 mg PO Q8H PRN #50 tab PRN Reason: Pain Continue One Tablet 1 tab PO DAILY Discharge Instructions/Outpatient Orders: Provider Discharge Instructions Location: Determined By Patient - Disposition 01 Discharged Home, Self-Care
--- NOTE | 2017-05-08 08:38 | OB/GYN Progress Note ---
OB-PP Progress Note - General POD:: POD2 - Subjective Date: 05/08/17 Lochia: Minimal Pain: contolled Voiding: voiding Nausea or Vomiting Present: No - Objective Vital Signs: Last Vital Signs Temp 96 F L 05/08/17 06:30 Pulse 89 05/08/17 06:30 Resp 14 05/08/17 06:30 BP 125/75 05/08/17 06:30 Pulse Ox 98 05/08/17 06:30 Urine Output: good General: alert and oriented Abdomen: fundus firm Incision: normal, clean Extremities: non-tender - Assessment Assessment: Primary C/S - Plan Plan: routine care, discharge home
--- NOTE | 2017-05-08 08:43 | Operative Note ---
DATE OF SURGERY: 05/06/2017 PREOPERATIVE DIAGNOSES 1. 26-year-old white female G1, P0 at 38 weeks 5 days gestational age. 2. Spontaneous rupture of membranes. 3. Spontaneous labor. 4. GBS prophylaxis. 5. Maternal history of cardiac valve replacement. 6. Occiput posterior presentation. POSTOPERATIVE DIAGNOSES 1. Male infant, 3532 grams, 9 Apgars (Will Farah). PROCEDURES: Primary low transverse section. EBL: 800 mL ANESTHESIA: Epidural dosing by Louie Edwards CRNA SURGEON: Cirilo Gibbons MD [employer] SUPERVISOR: Sharyn Driver MD BRIEF HISTORY Patient's water broke at 2330 last night. She came in in labor early this morning. She made it to complete dilation and pushed for an hour and a half. 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 I came in to back her up and took over. was in the occiput posterior presentation. She was having some late decelerations, so I stopped her pushing and gave her a fluid bolus and waited for the baby to recover. Tachycardia resolved and heart tones became reactive and we began pushing again and in two or three contractions, had a late decelerations. The baby was too high to assist in delivery so we went to a . DESCRIPTION OF PROCEDURE After adequate epidural anesthesia, the patient was prepped and draped in the left lateral decubitus position. A Pfannenstiel skin incision was made with a sharp knife and carried down to the fascia, which was incised transversely with the Arevalo scissors. The rectus fascia was bluntly and sharply dissected off the rectus muscle. The rectus muscle was divided, and the peritoneum was isolated, elevated, entered with the Metzenbaum scissors and extended cephalad and caudad. The bladder blade was then inserted. The lower vesicouterine fold of the peritoneum was isolated and incised transversely. The bladder was bluntly dissected off the lower uterine segment. The bladder blade was reinserted. Then using a sharp knife, a transverse incision was made in the lower uterine segment. This was extended with my fingers. Male was delivered from the vertex position. The head was wedged into the pelvis so we had a nurse help elevate from below and the infant was OP and asynclitic. We got to where we were able to deliver vertex with the head leaning towards the left shoulder and looking straight up out of the incision. We were able to straighten around and elevate it and deliver. Infant was bulb suctioned after delivery of the head and then again after delivery of the body. Cord was doubly clamped and cut and the was received by Dr. Rodrigo Robins of Pediatrics. The placenta was expressed manually and was intact. The uterus was then allowed to fall upon the external abdominal wall. The endometrial cavity was cleansed using moist lap sponges. The uterus was closed using 0-Monocryl in a running locking fashion. Hemostasis was confirmed. The bladder flap was then reapproximated with the visceral peritoneum using 3-0 Vicryl in a running nonlocking fashion. The posterior cul-de-sac was cleansed of old blood clots and the tubes and ovaries were examined and found to be normal in size, shape and appearance. After hemostasis was again confirmed, the uterus was then carefully returned to the abdominal cavity. The abdomen was then closed in layers. The peritoneum was closed using 2-0 Vicryl in running nonlocking fashion. The fascia was closed using 0-Vicryl in a running nonlocking fashion bilaterally from the lateral aspects medially. Hemostasis was achieved with the subcutaneous tissue and then the skin was closed using a subcuicular stitrch. The patient tolerated the procedure well and went to the recovery room in stable condition. Pad, sponge and needle counts were correct and urine postop was clear and free flowing. MTDD
[2017-05-08] MEDS: DOCUSATE CALCIUM 240 MG CAPSULE PO SCH (11:29)
[2017-05-08 14:12] VITALS: BP 124/75; PULSE 72; RESP 16; TEMP 98.3; O2SAT 99
== END 2017-05-08 14:10 | disposition home or self-care (01) | DRG 766 ==
LOC: MC 01:35
PROVIDERS: ADMIT Obstetrics & Gynecology; ATTEND Obstetrics & Gynecology